=== PATIENT | female | born 1970 | race African-American/Black ===

== ENCOUNTER 2024-03-01 15:00 | Emergency (ER) | payer MEDICAID, OTHER ==
[~2024-03-01] VITALS: Ht 165.1 cm; Wt 70.0 kg
[2024-03-01 15:01] VITALS: O2SAT 99
[2024-03-01] MEDS: SODIUM CHLORIDE 0.9% 1,000 ML IV ONE (15:55)
[2024-03-01 16:01] LABS: HEMATOCRIT. 42.3 % (36.0-48.0); HEMOGLOBIN. 13.6 g/dL (12.0-16.0); MEAN CORPUSCULAR HEMOGLOBIN 28.8 pg (28.0-32.0); MEAN CORPUSCULAR HGB CONC 32.2 g/dL (31.0-37.0); MEAN CORPUSCULAR VOLUME 89.5 fL (81.0-99.0); MEAN PLATELET VOLUME 9.6 fl (7.4-10.4); PLATELET 264 x1000/uL (130-400); RED BLOOD CELL COUNT 4.73 mill/uL (4.2-5.4); RED CELL DISTRIBUTION WIDTH 14.3 % (11.6-14.6)
[2024-03-01 16:02] LABS: DIFFERENTIAL COMMENT 1
[2024-03-01 16:09] LABS: CHLORIDE 106 mEq/L (98-107); POTASSIUM 3.1 mEq/L (3.5-5.1); SODIUM 141 mEq/L (136-145)
[2024-03-01 16:10] LABS: CALCIUM 9.4 mg/dL (8.7-10.4); CARBON DIOXIDE 25 mEq/L (21-32)
[2024-03-01 16:14] LABS: HCG SCREEN INDETERMINATE
[2024-03-01 16:15] LABS: CREATININE 0.9 mg/dL (0.6-1.0); GLUCOSE 112 mg/dL (70-105); UREA NITROGEN BLOOD 8 mg/dL (9-23)
[2024-03-01 16:16] LABS: D-DIMER 1.73 mg/L FEU (<0.50); PARTIAL THROMBOPLASTIN TIME 26.2 sec (23.4-31.0); PROTHROMBIN TIME 11.2 sec (9.6-11.0)
[2024-03-01 16:19] LABS: THYROID STIMULATING HORMONE 1.55 uIU/mL (0.55-4.78)
[2024-03-01 17:14] LABS: TROPONIN I HIGH SENSITIVITY 116 ng/L (3.0-34)
[2024-03-01] MEDS: ASPIRIN 325MG EC TABLET PO ONE (17:26)
[2024-03-01] MEDS: POTASSIUM CHLORIDE 20MEQ/PACKET PO ONE (17:26)
[2024-03-01] MEDS: ENOXAPARIN 80MG/0.8ML SYR SUBCUT ONE (17:27)
[2024-03-01 17:41] LABS: PLATELET ESTIMATE NORMAL
[2024-03-01 21:26] LABS: TROPONIN I HIGH SENSITIVITY 115 ng/L (3.0-34)
[2024-03-01] MEDS ORDERED: IOHEXOL-350 100 ML BOTTLE ONE (23:42)
[2024-03-02 00:31] VITALS: BP 129/69; PULSE 64; RESP 20; TEMP 36.83628; O2SAT 100
== END 2024-03-02 00:46 | disposition short-term general hospital (02) ==
LOC: ER 15:00 → EDBEDREQTM 23:38 → EDBEDREQ 23:38 → ER 03-02 00:46
DX: R00.2 Palpitations (principal); R53.1 Weakness; R20.2 Paresthesia of skin; R79.89 Other specified abnormal findings of blood chemistry; M19.90 Unspecified osteoarthritis, unspecified site; R10.2 Pelvic and perineal pain
CPT/HCPCS: 80048; 84703; 84702; 83880; 84443; 85025; 85379; 85610; 85730; 84484; 36415; 71045; 71275; 70450; 93005; 96360; 96372; 99285; Q9967; J1650; J7030; Z7610

== ENCOUNTER 2024-12-18 11:23 | Emergency (ER) | payer MEDICAID ==
[~2024-12-18] VITALS: Ht 170.2 cm; Wt 72.0 kg
[2024-12-18 11:26] VITALS: O2SAT 100
[2024-12-18 13:09] LABS: BASOPHILS % 0.5 % (0.0-2.0); EOSINOPHILS % 1.0 % (0.0-5.0); HEMATOCRIT. 41.4 % (36.0-48.0); HEMOGLOBIN. 13.6 g/dL (12.0-16.0); LYMPHOCYTES % 20.2 % (20.0-50.0); MEAN PLATELET VOLUME 10.4 fl (7.4-10.4); MONOCYTES % 7.7 % (2.0-8.0); NEUTROPHILS % 70.6 % (40.0-76.0); PLATELET 215 x1000/uL (130-400); RED BLOOD CELL COUNT 4.65 mill/uL (4.2-5.4); RED CELL DISTRIBUTION WIDTH 14.1 % (11.6-14.6)
[2024-12-18 13:25] LABS: CREATININE 0.9 mg/dL (0.6-1.0); UREA NITROGEN BLOOD 8 mg/dL (9-23)
[2024-12-18 13:30] LABS: TROPONIN I HIGH SENSITIVITY 15 ng/L (3.0-34)
[2024-12-18 14:17] LABS: CLARITY URINE TURBID (CLEAR); COLOR URINE ORANGE (YELLOW); GLUCOSE URINE NEGATIVE (NEGATIVE); KETONES URINE NEGATIVE (NEGATIVE); LEUKOCYTE ESTERASE URINE 3+ (NEGATIVE); NITRITE URINE NEGATIVE (NEGATIVE); OCCULT BLOOD URINE 3+ (NEGATIVE); PH URINE 8.5 (4.5-8.0); PROTEIN URINE 1+ (NEGATIVE); SPECIFIC GRAVITY URINE 1.012 (1.005-1.030); UROBILINOGEN URINE 0.2 E.U./dL (0.2-1.0)
[2024-12-18 14:48] LABS: SQUAMOUS EPITHELIAL CELL URINE 3+ /lpf (RARE/1+)
[2024-12-18 14:51] LABS: BACTERIA URINE 4+; WBC URINE TNTC /hpf (0-2)
[2024-12-18 16:03] LABS: TROPONIN I HIGH SENSITIVITY 20 ng/L (3.0-34)
[2024-12-18] MEDS ORDERED: SULF1TAB48 MT (17:14)
[2024-12-18] MEDS: CEFTRIAXONE SODIUM 1G VIAL IM ONE (17:25)
[2024-12-18] MEDS: LIDOCAINE HCL 1% 20ML VIAL INFIL ONE (17:25)
[2024-12-18 17:48] VITALS: BP 142/76; PULSE 61; RESP 18; TEMP 36.6; O2SAT 100
== END 2024-12-18 17:49 | disposition home or self-care (01) ==
LOC: ER 11:48 → CANBEDREQ 17:18 → ER 17:49
DX: R20.2 Paresthesia of skin (principal); R20.0 Anesthesia of skin; N39.0 Urinary tract infection, site not specified; M19.90 Unspecified osteoarthritis, unspecified site; Z79.899 Other long term (current) drug therapy
CPT/HCPCS: 99285; 70450; 71045; 80048; 81003; 85025; 87086; 84484; 36415; 93005; 96372; J0696; J2003